=== PATIENT | female | born 1955 | race Caucasian/White ===

== ENCOUNTER 2018-07-18 18:38 | Emergency (ER) | payer BC ==
[2018-07-18 19:50] VITALS: BP 119/74
[2018-07-18] MEDS ORDERED: Ketorolac INJ* 30 MG/ML 1 ML VIAL IM ONE (20:35)
--- NOTE | 2018-07-18 20:42 | UC ---
Hip/Pelvis Pain - HPI Summary HPI Summary: 63 year old female with 3 week history of throbbing, aching pain to left buttock that occasionally radiates down her left leg to her ankle. Worsens with movement, extended standing or sitting. Denies fever, chills, weakness, numbness , tingling in extremity, loss of bowel or bladder control. Has taken ibuprofen and cyclobenzaprine with some relief. Has not taken ibuprofen in a couple days. History of sciatica in past. - History Of Current Complaint Chief Complaint: UCGeneralIllness Stated Complaint: LEFT HIP PAIN Time Seen by Provider: 07/18/18 20:19 Hx Obtained From: Patient Onset/Duration: Gradual Onset, Lasting Weeks Severity Initially: Mild Severity Currently: Moderate Pain Intensity: 5 Location: Radiates To: - left leg Character Of Pain: Aching, Throbbing Aggravating Factor(s): Movement, Other - extended sitting or standing Alleviating Factor(s): OTC Medications Related History: Similar Episode/Dx As - sciatica - Allergies/Home Medications Allergies/Adverse Reactions: Allergies Allergy/AdvReac Type Severity Reaction Status Date / Time Penicillins Allergy Hives Verified 07/18/18 19:30 Sulfa (Sulfonamide Allergy Unknown Verified 07/18/18 19:30 Antibiotics) Reaction Details Home Medications: Home Medications Cyclobenzaprine TAB* [Flexeril 10 MG TAB*] 5 mg TID PRN 07/18/18 [History Confirmed 07/18/18] Diclofenac 1% GEL (NF) [Voltaren 1% GEL (NF)] 1 applic TID PRN 07/18/18 [ History Confirmed 07/18/18] Naltrexone TAB* 9 mg DAILY 07/18/18 [History Confirmed 07/18/18] PMH/Surg Hx/FS Hx/Imm Hx - Additional Past Medical History Additional PMH: Noncontributory Previously Healthy: Yes - Surgical History Surgical History: Yes Surgery Procedure, Year, and Place: tonsillectomy - Family History Family History: Noncontributory - Social History Occupation: Employed Full-time Lives: With Family Alcohol Use: Occasionally Substance Use Type: None Smoking Status (MU): Former Smoker - Immunization History Most Recent Tetanus Shot: UTD Review of Systems Constitutional: Negative Skin: Negative Respiratory: Negative Cardiovascular: Negative Motor: Negative Neurovascular: Negative Musculoskeletal: Other: - See HPI Neurological: Negative Is Patient Immunocompromised?: No All Other Systems Reviewed And Are Negative: Yes Physical Exam Triage Information Reviewed: Yes Appearance: Well-Appearing, No Pain Distress, Well-Nourished Vital Signs: Initial Vital Signs Temp 98.2 F 07/18/18 19:36 Pulse 70 07/18/18 19:36 Resp 16 07/18/18 19:36 BP 119/74 07/18/18 19:36 Pulse Ox 98 07/18/18 19:36 Vital Signs Reviewed: Yes Respiratory: Positive: Lungs clear, Normal breath sounds, No respiratory distress Cardiovascular: Positive: RRR, No Murmur, Pulses Normal, Brisk Capillary Refill Musculoskeletal: Positive: Strength Intact, ROM Intact, Other: - Nontender lumbar spine. Mild tenderness left buttocks. No tenderness left hip. Full painless ROM. Patient reports pain relief with strait leg raise. Neurological: Positive: Alert Skin Exam: Normal Hip Injury Course/Dx - Course Course Of Treatment: 63 year old female with 3 weeks of left buttock pain that radiates down her left leg. Has worsened over past 2-3 days. Denies numbness, tingling, weakness, or loss of bowel or bladder control. Has history of sciatica and has used ibuprofen and cyclobenzaprine occasionally with some relief. Her symptoms and exam are consistent with this diagnosis. She was given an injection of ketoralac in the clinic and encouraged to continue with conservative treat using NSAIDs and cyclobenzaprine. She is to follow up with her PCP in 7 days if no improvement. - Differential Dx/Diagnosis Provider Diagnoses: sciatica left leg Discharge - Sign-Out/Discharge Documenting (check all that apply): Patient Departure All imaging exams completed and their final reports reviewed: No Studies - Discharge Plan Condition: Stable Disposition: HOME Patient Education Materials: Sciatica (ED) Referrals: Krystina De La Rosa MD [Primary Care Provider] - 7 Days (For recheck.) Additional Instructions: You were given a shot of an anti-inflammatory in the clinic tonnori called ketoralac (Toradol) for your pain. You should not take any other anti- inflammatory medications such as ibuprofen (Advil, Motrin), naproxen (Aleve), or aspirin for at least 8 hours after receiving this medication. Starting tomorrow take ibuprofen 600 mg every 8 hours with food for 7 days. You may then take 600 mg every 8 hours as needed for pain. You may continue to use Flexeril (cyclobenzaprine) 1 tab every 8 hours as needed for severe pain or spasm. This may cause drowsiness so do not take and drive or operate machinery. Follow up with you primary care provider in 7 days for recheck. Seek immediate medical attention in the emergency room if you develop fever greater than 100.5 F, have worsening pain despite pain medication, develop weakness, numbness, or tingling in your leg, or lose control of your bowel or bladder. - Billing Disposition and Condition Condition: STABLE Disposition: Home
== END 2018-07-18 20:52 | disposition home or self-care (01) ==
LOC: UCCORT 18:38
DX: M54.32 Sciatica, left side (principal); Z88.0 Allergy status to penicillin; Z88.1 Allergy status to other antibiotic agents; Z87.891 Personal history of nicotine dependence
CPT/HCPCS: 96372; 99211; G0463; J1885

== ENCOUNTER 2018-09-12 07:35 | Emergency (ER) | payer BC ==
[2018-09-12 07:58] VITALS: BP 136/79
--- NOTE | 2018-09-12 08:12 | ED ---
Throat Pain/Nasal Congestion - HPI Summary HPI Summary: 63 yr old female with the complaint of sore throat. Onset of throat pain about 10 days ago, progressive worse, hurts to swallow, has felt like a lump in throat this morning when first woke up but not now. No drooling, no stridor, no change in voice. No fever or chills. - History of Current Complaint Chief Complaint: UCGeneralIllness Time Seen by Provider: 09/12/18 08:01 - Allergies/Home Medications Allergies/Adverse Reactions: Allergies Allergy/AdvReac Type Severity Reaction Status Date / Time Penicillins Allergy Hives Verified 07/18/18 19:30 Sulfa (Sulfonamide Allergy Unknown Verified 07/18/18 19:30 Antibiotics) Reaction Details Home Medications: Home Medications Ibuprofen 200 mg PO ONCE 09/12/18 [History Confirmed 09/12/18] PMH/Surg Hx/FS Hx/Imm Hx Respiratory History: Reports: Hx Asthma Musculoskeletal History: Denies: Hx Rheumatoid Arthritis, Hx Osteoporosis - OSTEOPENIA - Cancer History Hx Radiation Therapy: No - Surgical History Surgery Procedure, Year, and Place: tonsillectomy. LASIX Infectious Disease History: No Infectious Disease History: Denies: Traveled Outside the [place] in Last 30 Days - Family History Known Family History: Positive: None Family History: Noncontributory - Social History Occupation: Works From/At Home Alcohol Use: Occasionally Substance Use Type: Reports: None Smoking Status (MU): Former Smoker Review of Systems Constitutional: Negative Positive: Sore Throat All Other Systems Reviewed And Are Negative: Yes Physical Exam Triage Information Reviewed: Yes Vital Signs On Initial Exam: Initial Vitals Temp Pulse Resp BP Pulse Ox 97.2 F 67 15 136/79 99 09/12/18 07:49 09/12/18 07:49 09/12/18 07:49 09/12/18 07:49 09/12/18 07:49 Vital Signs Reviewed: Yes Appearance: Positive: Well-Appearing, No Pain Distress Skin: Positive: Warm, Skin Color Reflects Adequate Perfusion Head/Face: Positive: Normal Head/Face Inspection Eyes: Positive: EOMI ENT: Positive: Normal ENT inspection, Pharyngeal erythema, TMs normal, Uvula midline. Negative: Trismus, Muffled voice, Hoarse voice Neck: Positive: Nontender Respiratory/Lung Sounds: Positive: Clear to Auscultation, Breath Sounds Present Cardiovascular: Positive: RRR. Negative: Murmur Abdomen Description: Positive: Nontender Musculoskeletal: Positive: Strength/ROM Intact Neurological: Positive: Sensory/Motor Intact, Alert, Oriented to Person Place, Time, CN Intact II-III Diagnostics - Vital Signs Vital Signs Temp Pulse Resp BP Pulse Ox 09/12/18 07:49 97.2 F 67 15 136/79 99 - Laboratory Lab Statement: Any lab studies that have been ordered have been reviewed, and results considered in the medical decision making process. EENT Course/Dx - Course Course Of Treatment: Rapid strep negative. DC home in stable condition. FU with PMD. - Diagnoses Provider Diagnoses: Pharyngitis, Hypertension Discharge - Sign-Out/Discharge Documenting (check all that apply): Patient Departure All imaging exams completed and their final reports reviewed: No Studies - Discharge Plan Condition: Good Disposition: HOME Patient Education Materials: Hypertension (ED), Pharyngitis (ED) Referrals: Krystina De La Rosa MD [Primary Care Provider] - 2 Days - Billing Disposition and Condition Condition: GOOD Disposition: Home
== END 2018-09-12 08:33 | disposition home or self-care (01) ==
LOC: UCCORT 07:35
DX: J02.9 Acute pharyngitis, unspecified (principal); I10 Essential (primary) hypertension; Z88.0 Allergy status to penicillin; Z88.2 Allergy status to sulfonamides
CPT/HCPCS: 87651; 99212; G0463

== ENCOUNTER 2019-02-08 08:26 | Emergency (ER) | payer BC ==
--- OUTSIDE RECORDS SUMMARY | 2019-02-08 08:33 | XMS REPORT | Continuity of Care Document ---
:1955 External Reference #:[id number] Author Name Frankie RubioSANDRITA Address [address] [facility] [place] [address] Care Team Providers Name Role Phone Krystina De La Rosa MD Care Team Information Flight Dynamicist Unavailable Krystina De La Rosa MD Primary Care Physician Unavailable Payers Date Identification Numbers Payment Provider Subscriber Policy Number: [id number] Bhargavus Paolo Costello PayID: [id number] [address] [address] [place] [address] Advance Directives Description No Information Available Problems Date Description Provider Status Onset: 06/09/2013 Closed fracture of lateral malleolus Evens Dent MD Active Onset: 09/29/2015 Overweight Krystina De La Rosa MD Active Onset: 02/23/2016 High enzyme level in serum Krystina De La Rosa MD Active Onset: 02/23/2016 Scleritis Krystina De La Rosa MD Active Onset: 02/23/2016 Chronic nonalcoholic liver disease Krystina De La Rosa MD Active Onset: 02/23/2016 Chest pain Krystina De La Rosa MD Active Onset: 02/23/2016 Gastroesophageal reflux disease Krystina De La Rosa MD Active Onset: 02/23/2016 Simple goiter Krystina De La Rosa MD Active Onset: 02/23/2016 Breast lump Krystina De La Rosa MD Active Onset: 02/23/2016 Vitamin D deficiency Krystina De La Rosa MD Active Onset: 01/08/2017 Neutropenia Krystina De La Rosa MD Active Onset: 03/21/2018 Prediabetes Krystina De La Rosa MD Active Onset: 03/21/2018 Pure hypercholesterolemia Krystina De La Rosa MD Active Onset: 09/23/2018 Dysphagia Krystina De La Rosa MD Active Onset: 09/23/2018 Eruption Krystina De La Rosa MD Active Onset: 09/23/2018 Bilateral tinnitus Krystina De La Rosa MD Active Onset: 09/23/2018 Fibroadenosis of breast Krystina De La Rosa MD Active Family History Date Family Member(s) Observation Comments General Diabetes Father Heart Disease Father due to [place] () - 62 Father due to Congestive Heart () Failure Mother bowel malignancy Mother due to Septicemia () - after surg. 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[employer]'s Independent with all ADL's Hobbies [email or web address] Tobacco Use Start: Unknown End: Former Cigarette Smoker 1/2 PPD X 25 YRS, Unknown QUIT AT AGE 41 Smoking Status Reviewed: 01/22/19 Former Cigarette Smoker 1/2 PPD X 25 YRS, QUIT AT AGE 41 ETOH Use Currently consumes 2-3 dr/week alcohol socially Recreational Drug Use Denies Drug Use Tobacco Use Start: Unknown End: Patient is a former 1 ppd x 30 yrs, quit Unknown smoker at age 49 Allergies, Adverse Reactions, Alerts Date Description Reaction Status Severity Comments 06/09/2013 Penicillin Active 06/09/2013 Sulfa Drugs Active 01/22/2019 Cefuroxime Sodium Dizziness Active Medications Medication Date Status Form Strength Qnty SIG Indications Ordering Provider Mometasone 01/08/20 Active Suspension 50mcg/Act 17gm 2 sprays in Eileen De La Rosa 17 each MD Krystina nostril daily mdd 2 sprays Calcium + D Active Chewtabs 500-1000- 1 po daily Unknown 00 40mg-Unt- mcg Vitamin D3 Active Capsules 1000Unit 3 by mouth Unknown 00 every day Proair HFA Active Aerosol 108(90Bas 8.500 2 puffs Eladia De La Rosa) gm every 4 MD Krystina mcg/Act hours as needed for wheezing, sob, or persistent cough Omeprazole Active Capsules DR 20mg 90cap 1 by mouth Eladia De La Rosa every day MD Krystina Ibuprofen Hx Tablets 200mg prn Unknown - 07/01/20 13 Vitamin D Hx Capsules 1000Unit Unknown High Potency 00 - 09/29/20 15 Probiotic Hx Capsules once daily Unknown 00 - Unknown Garcinia Hx three times Unknown Cambogia 00 - a day Unknown Detox Hx Capsules 1,310mg 2 capsules Unknown 00 - twice a day Unknown Omeprazole Hx Capsules DR 20mg 90cap 1 by mouth Rj 00 - s every day MD Krystina 05/09/20 17 Prednisolone Hx Suspension 1% Instill 1 Unknown Acetate 00 - GTT In Left Unknown Eye Three To Four Times Daily Mometasone Hx Suspension 50mcg/Act 17gm 2 sprays in Rj, Furoate 00 - nose two MD Krystina 01/08/20 times a day 17 Artificial Hx Solution 0.2-0.2-1 1-2 drops Unknown Tears 00 - % twice a day 09/23/20 as needed 18 Immunizations CPT Code Status Date Vaccine Lot # [id number] Given 08/07/2014 Zoster Vaccine Live Injection [id number] Given 09/30/2013 Tdap injection Vital Signs Date Vital Result Comment 01/22/2019 10:50am BP Systolic Sitting Left Arm 126 mmHg BP Diastolic Sitting Left Arm 86 mmHg Body Temperature 98.3 F Heart Rate 80 /min Respiratory Rate 18 /min Height 65 inches 5'5" Weight 178.00 lb BMI (Body Mass Index) 29.6 kg/m2 BSA (Body Surface Area) 1.88 m2 [place] body weight in kilograms 57 kg 09/23/2018 10:28am BP Systolic 122 mmHg BP Diastolic 76 mmHg Body Temperature 98.4 F Heart Rate 74 /min Respiratory Rate 20 /min Height 65 inches 5'5" Weight 174.00 lb BMI (Body Mass Index) 29.0 kg/m2 BSA (Body Surface Area) 1.86 m2 [place] body weight in kilograms 57 kg O2 % BldC Oximetry 95 % 03/21/2018 8:59am BP Systolic 106 mmHg BP Diastolic 70 mmHg Body Temperature 97.9 F Heart Rate 67 /min Respiratory Rate 17 /min Height 65 inches 5'5" Weight 170.00 lb BMI (Body Mass Index) 28.3 kg/m2 BSA (Body Surface Area) 1.85 m2 [place] body weight in kilograms 57 kg 05/09/2017 10:05am BP Systolic 122 mmHg BP Diastolic 80 mmHg Height 65 inches 5'5" Weight 174.00 lb BMI (Body Mass Index) 29.0 kg/m2 BSA (Body Surface Area) 1.86 m2 [place] body weight in kilograms 57 kg 01/08/2017 1:49pm BP Systolic Sitting Left Arm 112 mmHg BP Diastolic Sitting Left Arm 66 mmHg Body Temperature 98.6 F Heart Rate 60 /min Respiratory Rate 18 /min Height 65 inches 5'5" Weight 177.00 lb BMI (Body Mass Index) 29.5 kg/m2 BSA (Body Surface Area) 1.88 m2 [place] body weight in kilograms 57 kg 03/08/2016 9:36am BP Systolic Sitting Left Arm 110 mmHg BP Diastolic Sitting Left Arm 68 mmHg Heart Rate 76 /min Respiratory Rate 16 /min Height 66 inches 5'6" Weight 179.00 lb BMI (Body Mass Index) 28.9 kg/m2 BSA (Body Surface Area) 1.91 m2 02/23/2016 2:07pm BP Systolic 138 mmHg BP Diastolic 84 mmHg Height 66 inches 5'6" Weight 178.00 lb BMI (Body Mass Index) 28.7 kg/m2 BSA (Body Surface Area) 1.90 m2 02/01/2016 9:08am BP Systolic Sitting Left Arm 53960 mmHg Heart Rate 63 /min Respiratory Rate 16 /min Height 66.25 inches 5'6.25" Weight 180.00 lb BMI (Body Mass Index) 28.8 kg/m2 BSA (Body Surface Area) 1.92 m2 09/29/2015 1:00pm BP Systolic 122 mmHg BP Diastolic 77 mmHg Body Temperature 99.1 F Heart Rate 71 /min Respiratory Rate 18 /min Height 66.25 inches 5'6.25" Weight 176.00 lb BMI (Body Mass Index) 28.2 kg/m2 BSA (Body Surface Area) 1.90 m2 06/09/2013 10:35am BP Systolic Sitting Left Arm 138 mmHg BP Diastolic Sitting Left Arm 90 mmHg Results Test Date Facility Test Result H/L Range Note Affirm 01/22/2019 [facility] [address] Trichomonas Negative [Negative] 1 Vaginitis Panel [address] [place] [address] [phone] Gardnerella vaginalis POSITIVE Abnormal [Negative] Rebecca species Negative [Negative] 2 Urine Dipstick 01/22/2019 [facility] Ua Leuko trace Negative Ua Nitrite - Negative Ua Urobilinogen .2 0.2 - 1.0 E.U./dL Ua Protein trace Negative Ua PH 5 Low 6.5-7.5 Ua Blood - Negative Ua Specific Fortescue 1.020 1.010-1.030 Ua Ketones - Negative Ua Bilirubin - Negative Ua Glucose - Negative Laboratory test 09/12/2018 [facility] Rapid Strep Negative Negative 3 finding [phone] Molecular Glucose 03/21/2018 [facility] Glucose 116 mg/dL High 74-[address] [place] [address] [phone] Reflex add FT3? Y Reflex add FT4? Y Magnesium 03/21/2018 [facility] Magnesium 2.3 mg/dL N 1.8-2.[address] [place] [address] [phone] Reflex add FT3? Y Reflex add FT4? Y Laboratory test 03/21/2018 [facility] Vitamin 47.7 30.0-100.[address] D,25-Hydroxy ng/[place] [address] [phone] TSH Reflex FT4 03/21/2018 [facility] Thyroid Stim 1.93 N 0.30-4.20 And/Or FT3 [address] Hormone uIU/[place] [address] [phone] Reflex add FT3? Y Reflex add FT4? Y Glycohemoglobin 03/07/2018 [facility] [address] Glycohemoglobin 6.3 % N 4.2- 6.3 6, [address] (A1c) [place] [address] [phone] eAG 134 mg/dL Differential-WBC Confirm 03/07/2018 [facility] [address] Total Cells 100 # CELLS [address] Counted [place], [place] [id number] [phone] Band% 3 % N 0-8 Neutrophils% 11 % Low 33-73 Lymph% 56 % High 20-42 Atypical Lymph% 8 % High 0-7 Monocyte% 9 % N 0-10 Eosinophil% 13 % High 0-5 Platelet Estimate NORMAL RBC Morphology NORMAL CBS W/Automated 03/07/2018 [facility] [address] White Blood 2.5 K/uL Low 3.1- 10.[address] [place] [address] [phone] Red Blood Count 5.17 M/uL N 3.90-5.40 Hemoglobin 16.1 gm/dL High 11.6-15.8 Hematocrit 45.7 % N 36.0-46.1 Mean Cell Volume 88.4 fl N 80.9-99.0 Mean Corpuscular HGB 31.1 pg N 25.9-32.7 Mean Corpuscular HGB Conc 35.2 g/dL High 30.8-34.3 Platelet Count 196 K/uL N 155-360 Red Cell Distri Width SD 43.9 fl N 3-47 Red Cell Distri Width %CV 13.9 % N 11.7-14.4 Mean Platelet Volume 11.1 fL N 8.9-12.4 Neut% 16.1 % Low 40.4-72.8 Lymph % 53.0 % High 20.0-42.0 Republic % 18.9 % High 4.3-13.2 Eo% 11.6 % High 0.0-6.6 Bas% 0.4 % N 0.0-1.1 Neut# 0.40 K/uL Low 1.8-7.0 Lymph # 1.32 K/uL N 1.0-4.0 Republic # 0.47 K/uL N 0.3-0.9 Eos # 0.29 K/uL N 0.0-0.5 Baso # 0.01 K/uL N 0.0-0.1 Comprehensive Metabolic 03/07/2018 [facility] [address] Glucose 116 mg/dL High 74-106 Panel [address] [place], [place] [id number] [phone] BUN 23 mg/dL High 7-18 Creatinine 0.8 mg/dL N 0.6-1.3 Glom Filtration Rate, Estimate >60 mL/min >60 If >60 mL/min >60 8 BUN/Creat 28.7 ratio Sodium 143 mmol/L N 136-145 Potassium 4.5 mmol/L N 3.5-5.1 Chloride 111 mmol/L High 98-107 Carbon Dioxide 26 mmol/L N 21-32 Anion Gap 6 mEq/L Low 8-16 Calcium 9.5 mg/dL N 8.5-10.1 Total Protein 6.8 g/dL N 6.4-8.2 Albumin 3.8 g/dL N 3.4-5.0 Globulin 3.0 g/dL N 1.9-4.3 Alb/Glob 1.3 ratio Bilirubin,Total 0.5 mg/dL N 0.2-1.0 Sgot/Ast 14 U/L Low 15-37 9 SGPT/Alt 39 U/L N 12-78 Alkaline Phosphatase 58 U/L N 45-117 LDL Cholesterol Profile 03/07/[address] Cholesterol 152 mg/dL <[address] [place] [address] [phone] Triglycerides 74 mg/dL <150 11 HDL Cholesterol 55 mg/dL >40 12 LDL-Cholesterol 82 mg/dL < 100 13 Path Review: 03/07/[address] Path INDICATED,SLIDE 14 4077 [facility] Review: <SEE NOTE> [place] [facility] [phone] Slide Review 03/07/[address] Slide DIFF ORDERED [address] Review [place] [address] [phone] Comprehensive 05/09/2017 [facility] Glucose 117 mg/dL High 74- 15 Metabolic Panel [address] [place] [address] [phone] BUN 12 mg/dL N 7-18 Creatinine 0.9 mg/dL N 0.6-1.3 Glom Filtration Rate, Estimate >60 mL/min >60 If >60 mL/min >60 16 BUN/Creat 13.3 ratio Sodium 142 mmol/L N 136-145 Potassium 3.8 mmol/L N 3.5-5.1 Chloride 108 mmol/L High 98-107 Carbon Dioxide 28 mmol/L N 21-32 Anion Gap 6 mEq/L Low 8-16 Calcium 9.6 mg/dL N 8.5-10.1 Total Protein 6.9 g/dL N 6.4-8.2 Albumin 3.8 g/dL N 3.4-5.0 Globulin 3.1 g/dL N 1.9-4.3 Alb/Glob 1.2 ratio Bilirubin,Total 0.4 mg/dL N 0.2-1.0 Sgot/Ast 18 U/L N 15-37 SGPT/Alt 49 U/L N 12-78 Alkaline Phosphatase 57 U/L N 45-117 Laboratory test finding 05/09/2017 [facility] Amylase 41 U/L N 25-[address] [place], [place] [address] [phone] Lipase 108 U/L N 73-393 HPV High 01/08/2017 [facility] HPV High Risk Results on 17, [address] [place] [address] [phone] CBS 01/08/2017 [facility] White Blood 3.4 K/uL N 3.1-10. W/Automated [address] Count 7 [place] [address] [phone] Red Blood Count 5.43 M/uL High 3.90-5.40 Hemoglobin 16.4 gm/dL High 11.6-15.8 Hematocrit 48.2 % High 36.0-46.1 Mean Cell Volume 88.8 fl N 80.9-99.0 Mean Corpuscular HGB 30.2 pg N 25.9-32.7 Mean Corpuscular HGB Conc 34.0 g/dL N 30.8-34.3 Platelet Count 231 K/uL N 150-400 Red Cell Distri Width SD 44.8 fl N 3-47 Red Cell Distri Width %CV 14.1 % N 11.7-14.4 Mean Platelet Volume 10.9 fL N 8.9-12.4 Neut% 26.2 % Low 40.4-72.8 Lymph % 52.8 % High 20.0-42.0 Republic % 16.9 % High 4.3-13.2 Eo% 3.8 % N 0.0-6.6 Bas% 0.3 % N 0.0-1.1 Neut# 0.90 K/uL Low 1.8-7.0 Lymph # 1.81 K/uL N 1.0-4.0 Republic # 0.58 K/uL N 0.3-0.9 Eos # 0.13 K/uL N 0.0-0.5 Baso # 0.01 K/uL N 0.0-0.1 Slide Review 01/08/2017 [facility] Slide Review . 19 [address] [place] [address] [phone] Laboratory test 10/18/2016 [facility] Thyroid Stim 2.17 N 0.30-4 20 finding [address] Hormone uIU/mL .20 [place] [address] [phone] Comprehensive 10/18/2016 [facility] Glucose 129 mg/dL High 74-106 Metabolic Panel [address] [place] [address] [phone] BUN 26 mg/dL High 7-18 Creatinine 0.9 mg/dL N 0.6-1.3 Glom Filtration Rate, Estimate >60 mL/min N >60 If >60 mL/min N >60 21 BUN/Creat 28.8 ratio N Sodium 141 mmol/L N 136-145 Potassium 4.1 mmol/L N 3.5-5.1 Chloride 108 mmol/L High 98-107 Carbon Dioxide 26 mmol/L N 21-32 Anion Gap 7 mEq/L Low 8-16 Calcium 8.4 mg/dL Low 8.5-10.1 Total Protein 6.4 g/dL N 6.4-8.2 Albumin 3.6 g/dL N 3.4-5.0 Globulin 2.8 g/dL N 1.9-4.3 Alb/Glob 1.3 ratio N Bilirubin,Total 0.6 mg/dL N 0.2-1.0 Sgot/Ast 14 U/L Low 15-37 22 SGPT/Alt 45 U/L N 12-78 Alkaline Phosphatase 53 U/L N 45-117 LDL Cholesterol Profile 10/18/2016 [facility] Cholesterol 141 mg/dL N <200 23 [address] [place] [address] [phone] Triglycerides 45 mg/dL N <150 24 HDL Cholesterol 55 mg/dL N >40 25 LDL-Cholesterol 77 mg/dL N < 100 26 Laboratory test 02/23/2016 [facility] Blood Smear See Note 27 finding [address] Review - [place] [address] [phone] Laboratory test 02/23/2016 [facility] Lipase 97 U/L 73-393 finding [address] [place] [address] [phone] Amylase 38 U/L 25-115 Hepatitis 02/23/2016 [facility] Hepatitis A Nonreactive [address] [place] [place] [address] [phone] Hepatitis B Surface Antigen Nonreactive Nonreactive 29 Hepatitis B Core IgM Nonreactive Nonreactive 30 Hepatitis C Antibody Nonreactive Nonreactive Signal/Cutoff ratio < 0.02 <0.80 31 Liver Function Tests 02/23/2016 [facility] Total Protein 7.1 g/dL 6.4-8.[address] [place] [address] [phone] Albumin 4.2 g/dL 3.4-5.0 Globulin 2.9 g/dL 1.9-4.3 Alb/Glob 1.4 ratio Bilirubin,Total 0.5 mg/dL 0.2-1.0 Bilirubin,Direct 0.1 mg/dL 0.0-0.2 Bilirubin,Indirect 0.4 mg/dL 0.0-0.9 Sgot/Ast 15 U/L 15-37 SGPT/Alt 58 U/L 12-78 Alkaline Phosphatase 64 U/L 45-117 Arthritis 02/23/2016 [facility] Sedimentation 1 mm/hr 0-30 32 Panel([place]) [address] [place] [address] [phone] Rheumatoid Factor Screen < 10.0 IU/mL 0.0-15.0 Uric Acid 4.7 mg/dL 2.6-6.0 Antinuclear Antibodies, Ifa Negative . 33 CBC W/Automated 02/23/2016 [facility] White Blood 2.3 K/uL Low 3.1-10.[address] [place] [address] [phone] Red Blood Count 5.29 M/uL 3.90-5.40 Hemoglobin 15.8 gm/dL 11.6-15.8 Hematocrit 45.7 % 36.0-46.1 Mean Cell Volume 86.4 fl 80.9-99.0 Mean Corpuscular HGB 29.9 pg 25.9-32.7 Mean Corpuscular HGB Conc 34.6 g/dL High 30.8-34.3 Platelet Count 215 K/uL 155-360 Red Cell Distri Width SD 41.9 fl 3-47 Red Cell Distri Width %CV 13.5 % 11.7-14.4 Mean Platelet Volume 10.7 fL 8.9-12.4 Neut% 21.1 % Low 40.4-72.8 Lymph % 55.3 % High 17.0-46.1 Republic % 19.7 % High 4.3-13.2 Eo% 3.5 % 0.0-6.6 Bas% 0.4 % 0.0-1.1 Neut# 0.48 K/uL Low 1.8-7.0 Lymph # 1.26 K/uL Low 1.8-7.0 Republic # 0.45 K/uL 0.3-0.9 Eos # 0.08 K/uL 0.0-0.5 Baso # 0.01 K/uL 0.0-0.1 Laboratory test 02/23/2016 [facility] C-Reactive 2.27 mg/L <3.[address] Protein,Cardiac [place], [place] [address] [phone] Vitamin D,25-Hydroxy 74.7 ng/mL 30.0-100.0 34 Slide Review DIFF ORDERED 35 Path Review: See Note 36 Differential WBC 02/23/2016 [facility] Total Cells 100 #CELLS Confirm [address] Counted [place], [place] [address] [phone] Band% 2 % 0-8 Neutrophils% 15 % Low 33-73 Lymph% 52 % 17-56 Atypical Lymph% 18 % High 0-7 Monocyte% 10 % 0-10 Eosinophil% 3 % 0-5 Platelet Estimate NORMAL RBC Morphology NORMAL Laboratory test finding 01/03/2016 [facility] Lipase 394 U/L High 73-[address] [place], [place] [address] [phone] Troponin-I < 0.015 ng/mL 37 Comprehensive Metabolic 01/03/2016 [facility] Glucose 141 mg/dL High 74-106 Panel [address] [place], [place] [address] [phone] BUN 18 mg/dL 7-18 Creatinine 0.9 mg/dL 0.6-1.3 Glom Filtration Rate, Estimate >60 mL/min >60 If >60 mL/min >60 38 BUN/Creat 20.0 ratio Sodium 144 mmol/L 136-145 Potassium 3.5 mmol/L 3.5-5.1 Chloride 109 mmol/L High 98-107 Carbon Dioxide 25 mmol/L 21-32 Anion Gap 10 mEq/L 8-16 Calcium 8.3 mg/dL Low 8.5-10.1 Total Protein 5.9 g/dL Low 6.4-8.2 Albumin 3.3 g/dL Low 3.4-5.0 Globulin 2.6 g/dL 1.9-4.3 Alb/Glob 1.3 ratio Bilirubin,Total 0.3 mg/dL 0.2-1.0 Sgot/Ast 10 U/L Low 15-37 39 SGPT/Alt 37 U/L 12-78 Alkaline Phosphatase 52 U/L 45-117 Laboratory test finding 01/03/2016 [facility] CK 37 U/L 26-192 [address] [place] [address] [phone] Troponin-I < 0.015 ng/mL 40 CBC W/Automated Diff 01/03/2016 [facility] White Blood 3.4 K/uL 3.1-10.7 [address] [facility] [place] [address] [phone] Red Blood Count 4.76 M/uL 3.90-5.40 Hemoglobin 14.5 gm/dL 11.6-15.8 Hematocrit 41.3 % 36.0-46.1 Mean Cell Volume 86.8 fl 80.9-99.0 Mean Corpuscular HGB 30.5 pg 25.9-32.7 Mean Corpuscular HGB Conc 35.1 g/dL High 30.8-34.3 Platelet Count 219 K/uL 155-360 Red Cell Distri Width SD 42.4 fl 3-47 Red Cell Distri Width %CV 13.7 % 11.7-14.4 Mean Platelet Volume 10.6 fL 8.9-12.4 Neut% 22.7 % Low 40.4-72.8 Lymph % 54.0 % High 17.0-46.1 Republic % 14.0 % High 4.3-13.2 Eo% 7.2 % High 0.0-6.6 Bas% 2.1 % High 0.0-1.1 Neut# 0.76 K/uL Low 1.8-7.0 Lymph # 1.81 K/uL 1.8-7.0 Republic # 0.47 K/uL 0.3-0.9 Eos # 0.24 K/uL 0.0-0.5 Baso # 0.07 K/uL 0.0-0.1 Laboratory test finding 01/03/2016 [facility] Slide Review . 41 [address] [place], [place] [address] [phone] Path Review: See Note 42 Laboratory test finding 01/03/2016 [facility] Lipase 928 U/L High 73-393 43 [address] [place] [address] [phone] D-Dimer, Quantitative 0.26 ug/mL 44 Laboratory test 01/03/2016 [facility] Blood Smear See Note [address] [place] [place] [address] [phone] Laboratory test 01/03/2016 N2N/CCD Import Basophils # 0.07 0.0-0.1 finding (Auto) Basophils (%) (Auto) 2.1 High 0.0-1.1 Eosinophils # (Auto) 0.24 0.0-0.5 Eosinophils (%) (Auto) 7.2 High 0.0-6.6 Lymphocytes # (Auto) 1.81 1.8-7.0 Lymphocytes (%) (Auto) 54.0 High 17.0-46.1 Manual Slide Review (Hematology) . Monocytes # (Auto) 0.47 0.3-0.9 Monocytes (%) (Auto) 14.0 High 4.3-13.2 Neutrophils # (Auto) 0.76 *L 1.8-7.0 Neutrophils (%) (Auto) 22.7 Low 40.4-72.8 Pathologist Review (Hematology) Indicated,Slide Sent RDW Coefficient of Variation 13.7 11.7-14.4 Red Cell Distribution Width 42.4 3-47 Sodium Level 144 136-145 Laboratory test 10/29/2015 N2N/NextPrinciples Import Urine Bilirubin Negative Negative finding Urine Blood Negative Negative Urine Clarity Clear Clear Urine Color Yellow Yellow Urine Glucose (Ua) Negative Negative Urine Ketones Negative Negative Urine Leukocyte Esterase Negative Negative Urine Nitrite Negative Negative Urine Protein Negative Negative Urine Specific [place] 1.025 1.010-1.030 Urine Urobilinogen 0.2 0.2-1.0 Urine pH 5.5 Low 6.5-7.5 Laboratory test 10/29/2015 N2N/CCD Import Anti-Nuclear Antibody Negative . finding Screen C-Peptide ng/ml 3.4 1.1-4.4 Erythrocyte Sedimentation Rate 2 0-30 Estimated Average Glucose (eAG) 131 Follicle Stimulating Hormone 63.9 Free Thyroxine 1.04 0.76-1.46 Free Triiodothyronine 2.74 2.18-3.98 Hemoglobin A1c 6.2 4.2-6.3 Homocysteine 10.1 0.0-15.0 Insulin Level 15.8 2.6-24.9 Luteinizing Hormone 19.3 Magnesium Level 1.9 1.8-2.4 Plasma Histamine Level 0.34 <1.00 Progesterone Level 0.2 . Reverse Triiodothyronine (T3) 14.7 9.2-24.1 Testosterone Level 12 3-41 Thyroid Peroxidase Antibodies 11 0-34 Thyroid Stimulating Hormone (TSH) 1.93 0.36-3.74 Thyrotropin Receptor Antibody 3.06 High 0.00-1.75 Thyroxine (T4) 8.9 4.7-13.5 Total Triiodothyronine 110 71-180 Tryptase 3.1 2.2-13.2 Vitamin B12 Level 262 193-986 Vitamin K1 Level 0.46 0.28-1.78 Whole Blood Zinc 603 440-860 Laboratory test 10/06/2015 N2N/CCD Import Atypical Lymphocytes % 8 High 0 -7 finding Band Neutrophils % 1 0-8 Basophils # (Auto) 0.01 0.0-0.1 Basophils % 1 0-2 Differential Total Cells Counted 100 Eosinophils # (Auto) 0.14 0.0-0.5 Eosinophils % 6 High 0-5 Lymphocytes # (Auto) 1.25 Low 1.8-7.0 Lymphocytes % 48 17-56 Monocytes # (Auto) 0.51 0.3-0.9 Monocytes % 15 High 0-10 Neutrophils # (Auto) 0.50 Low 1.0-7.0 Normal RBC Morphology Normal Pathologist Review (Hematology) Indicated,Slide Sent RDW Coefficient of Variation 13.4 11.7-14.4 Red Cell Distribution Width 42.5 3-47 Sodium Level 139 136-145 Laboratory test 10/06/2015 [facility] Blood Smear See Note 46 finding [address] Review - [place] [address] [phone] Differential-WBC 10/06/2015 [facility] Total Cells 100 #CELLS Confirm [address] Counted [place] [address] [phone] Band% 1 % 0-8 Neutrophils% 21 % Low 33-73 Lymph% 48 % 17-56 Atypical Lymph% 8 % High 0-7 Monocyte% 15 % High 0-10 Eosinophil% 6 % High 0-5 Basophil% 1 % 0-2 Platelet Estimate NORMAL RBC Morphology NORMAL Laboratory test 10/06/2015 [facility] Path Review: See Note 47 finding [address] [place] [address] [phone] LDL Cholesterol 10/06/2015 [facility] Cholesterol 122 mg/dL <200 48 Profile [address] [place] [address] [phone] Triglycerides 56 mg/dL <150 49 HDL Cholesterol 39 mg/dL Low >40 50 LDL-Cholesterol 72 mg/dL < 100 51 Comprehensive Metabolic 10/06/2015 [facility] Glucose 118 mg/dL High 74-106 Panel [address] [place] [id number] [phone] BUN 16 mg/dL 7-18 Creatinine 0.9 mg/dL 0.6-1.3 Glom Filtration Rate, Estimate >60 mL/min >60 If >60 mL/min >60 52 BUN/Creat 17.7 ratio Sodium 139 mmol/L 136-145 Potassium 3.8 mmol/L 3.5-5.1 Chloride 106 mmol/L 98-107 Carbon Dioxide 27 mmol/L 21-32 Anion Gap 6 mEq/L Low 8-16 Calcium 9.2 mg/dL 8.5-10.1 Total Protein 6.5 g/dL 6.4-8.2 Albumin 4.0 g/dL 3.4-5.0 Globulin 2.5 g/dL 1.9-4.3 Alb/Glob 1.6 ratio Bilirubin,Total 0.5 mg/dL 0.2-1.0 Sgot/Ast 20 U/L 15-37 SGPT/Alt 61 U/L 12-78 Alkaline Phosphatase 50 U/L 45-117 CBS W/Automated 10/06/2015 [facility] White Blood 2.4 K/uL Low 3.1-10.7 Diff [address] [place] [id number] [phone] Red Blood Count 5.26 M/uL 3.90-5.40 Hemoglobin 16.3 gm/dL High 11.6-15.8 Hematocrit 46.2 % High 36.0-46.1 Mean Cell Volume 87.8 fl 80.9-99.0 Mean Corpuscular HGB 31.0 pg 25.9-32.7 Mean Corpuscular HGB Conc 35.3 g/dL High 30.8-34.3 Platelet Count 207 K/uL 155-360 Red Cell Distri Width SD 42.5 fl 3-47 Red Cell Distri Width %CV 13.4 % 11.7-14.4 Mean Platelet Volume 11.3 fL 8.9-12.4 Neut# 0.50 K/uL Low 1.0-7.0 Lymph # 1.25 K/uL Low 1.8-7.0 Republic # 0.51 K/uL 0.3-0.9 Eos # 0.14 K/uL 0.0-0.5 Baso # 0.01 K/uL 0.0-0.1 Laboratory test finding 09/29/2015 Off Site [facility] Fit Hemoccult negative 1 R35.0 2 Method: BD Affirm VPIII DNA Probe Assay 3 Plant Sprayer: [id number] 4 R73.03 E55.9 E61.2 E04.0 5 Vitamin D deficiency has been defined by the [place] [employer] and an Endocrine Society practice guideline as a level of serum 25-OH vitamin D less than 20 ng/mL (1,2). The Endocrine Society went on to further define vitamin D insufficiency as a level between 21 and 29 ng/mL (2). 1. IOM ([place] of [employer]). 2010. Dietary reference intakes for calcium and D. [place]: The National Academies Press. 2. Magaly MF, Harlan NC, Poncho-Tay PANDYA, et al. Evaluation, treatment, and prevention of vitamin D deficiency: an Endocrine Society clinical practice guideline. JCEM. 2010; 96(7):1911-30. Performed at: RN - [facility] [address] [id number] Store Detective: Ioana Cabrera MD, Phone: [phone] 6 Z13.0, Z13.1, Z13.220 7 Elevated levels of HbA1c suggest the need for more aggressive treatment of glycemia. The [place] [employer] Association recommends that a primary goal of therapy should be a HbA1c of <7% and that physicians should re-evaluate the treatment regimen in patients with HbA1c values consistently >8%. 8 Note: Persistent reduction for 3 months or more in an eGFR <60 mL/min/1.73 m2 defines CKD. Patients with eGFR values >/=60 mL/min/1.73 m2 may also have CKD if evidence of persistent proteinuria is present. The original MDRD equation for estimated GFR is not valid for patients less than 18 years of age. Additional information may be found at www.kdoqi.org. 9 Values below the stated reference ranges of AST and ALT can be seen in normal populations. Clinical correlation is suggested. 10 Reference Guidelines*: Desirable: ........... < 200 mg/dL Borderline High: ..... 200-239 mg/dL High: ................ >=240 mg/dL * The National Cholesterol Education Program (NCEP) 11 Reference Guidelines*: Normal: ............. < 150 mg/dL Borderline High: .... 150-199 mg/dL High: ............... 200-499 mg/dL Very High: .......... > 500 mg/dL * Source: National Cholesterol Education Program (NCEP) 12 Reference Guidelines*: Low HDL: ..... < 40 mg/dL Normal: ..... 40-60 mg/dL Desirable: ... > 60 mg/dL *The National Cholesterol Education Program(NCEP) 13 Reference Guidelines*: Optimal:........... <100 mg/dL Near Optimal....... 100-129 mg/dL Borderline High.... 130-159 mg/dL High............... 160-189 mg/dL Very High.......... >=190 mg/dL * Source: National Cholesterol Education Program (NCEP) 14 INDICATED,SLIDE SENT Hematology Consultation Final Report Case# [id number] Final diagnosis Peripheral Blood smear: Review of peripheral blood smear shows marked absolute neutropenia. No Pelgeroid neutrophils are present. No blasts or immature granulocytes are seen. If there is no vitamin B12/folic acid deficiency, no viral infection and no medication effect, bone marrow examination is recommended to determine the cause of neutropenia. [facility] 03/11/18 Gross Description Peripheral blood smear Clinical Data Leukopenia Lorin Youngblood MD Reported 03/11/2018 at 7:32PM, Report electronically signed Performed at: [facility] [id number] [place] [address] 15 R19.7 16 Note: Persistent reduction for 3 months or more in an eGFR <60 mL/min/1.73 m2 defines CKD. Patients with eGFR values >/=60 mL/min/1.73 m2 may also have CKD if evidence of persistent proteinuria is present. The original MDRD equation for estimated GFR is not valid for patients less than 18 years of age. Additional information may be found at www.kdoqi.org. 17 Z01.419 18 Hard copy of report to be sent by mail Report may be viewed in Clinical Review, or in PCI under Medical Record Forms 19 Instrument flagged sample for slide review. Less than 10% Bands seen, no other immature WBC's seen. RBC morphology essentially normal. Platelet estimate=NORMAL 20 Z13.220 Z13.1 E04.0 21 Note: Persistent reduction for 3 months or more in an eGFR <60 mL/min/1.73 m2 defines CKD. Patients with eGFR values >/=60 mL/min/1.73 m2 may also have CKD if evidence of persistent proteinuria is present. The original MDRD equation for estimated GFR is not valid for patients less than 18 years of age. Additional information may be found at www.kdoqi.org. 22 Values below the stated reference ranges of AST and ALT can be seen in normal populations. Clinical correlation is suggested. 23 Reference Guidelines*: Desirable: ........... < 200 mg/dL Borderline High: ..... 200-239 mg/dL High: ................ >=240 mg/dL * The National Cholesterol Education Program (NCEP) 24 Reference Guidelines*: Normal: ............. < 150 mg/dL Borderline High: .... 150-199 mg/dL High: ............... 200-499 mg/dL Very High: .......... > 500 mg/dL * Source: National Cholesterol Education Program (NCEP) 25 Reference Guidelines*: Low HDL: ..... < 40 mg/dL Normal: ..... 40-60 mg/dL Desirable: ... > 60 mg/dL *The National Cholesterol Education Program(NCEP) 26 Reference Guidelines*: Optimal:........... <100 mg/dL Near Optimal....... 100-129 mg/dL Borderline High.... 130-159 mg/dL High............... 160-189 mg/dL Very High.......... >=190 mg/dL * Source: National Cholesterol Education Program (NCEP) 27 DIAGNOSIS: "PERIPHERAL SMEAR, REVIEW": - ABSOLUTE NEUTROPENIA. EP/clf 1004 GROSS 1 SLIDE FOR PATH REVIEW REVIEW CODE CODE: I Signed Electronically signed Phil SNYDER MD 1113 28 IgM antibodies to HAV not detected; does not exclude early acute or recovered HAV infection. 29 HBsAg not detected; does not exclude the possibility of exposure to or early acute infections with HBV. 30 IgM anti-HBc not detected. Does not exclude the possibility of exposure to or infection with HBV. 31 Antibodies to HCV not detected; does not exclude early acute HCV infection. [address] [place]OH[place] NEUT# [place] [address]/23/16 by LAB.MPK 33 Negative <1:80 Borderline 1:80 Positive >1:80 Performed at: [facility] [address] [id number] Store Detective: Ioana Cabrera MD, Phone: [phone] 34 Vitamin D deficiency has been defined by the [place] [employer] and an Endocrine Society practice guideline as a level of serum 25-OH vitamin D less than 20 ng/mL (1,2). The Endocrine Society went on to further define vitamin D insufficiency as a level between 21 and 29 ng/mL (2). 1. IOM ([place] of [employer]). 2010. Dietary reference intakes for calcium and D. [place]: The National Academies Press. 2. Magaly MF, Harlan LADD, Jose Eduardo PANDYA, et al. Evaluation, treatment, and prevention of vitamin D deficiency: an Endocrine Society clinical practice guideline. JCEM. 2010; 96(7):1911-30. Performed at: - [facility] [id number] Store Detective: Ioana Cabrera MD, Phone: [phone] [address] JOHNSON CALLED BACK FOR NEUT# AT 7467 02/23/16 by LAB.MPK 36 INDICATED,SLIDE SENT 37 0.0 - 0.045 ng/mL: Normal 0.046 - 0.5 ng/mL: Suggestive 0.6 - 1.5 ng/mL: Consistent 38 Note: Persistent reduction for 3 months or more in an eGFR <60 mL/min/1.73 m2 defines CKD. Patients with eGFR values >/=60 mL/min/1.73 m2 may also have CKD if evidence of persistent proteinuria is present. The original MDRD equation for estimated GFR is not valid for patients less than 18 years of age. Additional information may be found at www.kdoqi.org. 39 Values below the stated reference ranges of AST and ALT can be seen in normal populations. Clinical correlation is suggested. 40 0.0 - 0.045 ng/mL: Normal 0.046 - 0.5 ng/mL: Suggestive 0.6 - 1.5 ng/mL: Consistent 41 Instrument flagged sample for slide review. No immature WBC's noted. RBC morphology essentially normal. Platelet estimate=Normal 42 INDICATED,SLIDE SENT 43 CHECKED + CALLED LIPASE TO [place]REY AT 0310 01/03/16 44 <=0.49 ug/mL - Low likelihood of DIC, DVT or Pulmonary Embolism >0.49 ug/mL - Additional testing should be done to rule out DIC, DVT, or Pulmonary embolism as clinically indicated. ([facility] has established a 97.89% negative predictive value for thrombotic disease when a cutoff value of 0.5 ug/mL is used.) 45 DIAGNOSIS: "PERIPHERAL SMEAR, REVIEW": - ABSOLUTE NEUTROPENIA. EP/clf Latisha FUNMI RECEIVED 1 PREPARED SMEAR FOR PATH REVIEW. [facility] REVIEW CODE CODE: I Signed Electronically signed Phil SNYDER MD 1042 46 DIAGNOSIS: "PERIPHERAL SMEAR, REVIEW": - ABSOLUTE NEUTROPENIA WITH UNREMARKABLE LEUKOCYTE MORPHOLOGY. EP/mauro 1037 PRE OPERATIVE DIAGNOSIS Z13.0; Z13.220; Z00.00 Signed Electronically signed Phil SNYDER MD 1150 47 INDICATED,SLIDE SENT 48 Reference Guidelines*: Desirable: ........... < 200 mg/dL Borderline High: ..... 200-239 mg/dL High: ................ >=240 mg/dL * The National Cholesterol Education Program (NCEP) 49 Reference Guidelines*: Normal: ............. < 150 mg/dL Borderline High: .... 150-199 mg/dL High: ............... 200-499 mg/dL Very High: .......... > 500 mg/dL * Source: National Cholesterol Education Program (NCEP) 50 Reference Guidelines*: Low HDL: ..... < 40 mg/dL Normal: ..... 40-60 mg/dL Desirable: ... > 60 mg/dL *The National Cholesterol Education Program(NCEP) 51 Reference Guidelines*: Optimal:........... <100 mg/dL Near Optimal....... 100-129 mg/dL Borderline High.... 130-159 mg/dL High............... 160-189 mg/dL Very High.......... >=190 mg/dL * Source: National Cholesterol Education Program (NCEP) 52 Note: Persistent reduction for 3 months or more in an eGFR <60 mL/min/1.73 m2 defines CKD. Patients with eGFR values >/=60 mL/min/1.73 m2 may also have CKD if evidence of persistent proteinuria is present. The original MDRD equation for estimated GFR is not valid for patients less than 18 years of age. Additional information may be found at www.kdoqi.org. Procedures Date Code Description Status 03/21/2018 [id number] Mammogram Completed 03/21/2018 [id number] Bone Mineral Density Test Completed 03/01/2016 37086 ECHO Transthoracic Inc Performance Continuous Completed Electrocardio 02/01/2016 10946 EKG-Tracing And Report Completed 11/08/2015 [id number] Mammogram Completed 07/01/2013 58379 Radiology, Ankle Complete Completed 06/17/2013 24800 Radiology, Ankle Complete Completed 06/09/2013 56401 Fracture closed distal fib w/o manipulation Completed 04/21/2010 10758 Asp./Injection major joint Completed 08/31/2009 34769 Stress Test Interpre And Report Only Completed 08/31/2009 21413 Stress Test Physician Super Only Completed Encounters Type Date Location Provider Dx Diagnosis Office Visit 01/22/2019 Family Medicine Ramiro, R35.0 Frequency of 10:45a Bin OCHOA Jenniferleigh, micturition DESIGN CONSULTANT Z71.1 Person w feared hlth complaint in whom no diagnosis is made Office Visit 09/23/2018 10:15a Family Krystina Rodriguez, R13.10 Dysphagia, Bin OCHOA MD unspecified R21 Rash and other nonspecific skin eruption H93.13 Tinnitus, bilateral 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 R73.03 Prediabetes Office Visit 03/21/2018 9:00a Family Krystina Rodriguez, Z00.00 Encntr for Bin OCHOA MD general adult medical exam w/o abnormal findings R73.03 Prediabetes E78.00 Pure hypercholesterolemia, unspecified E55.9 Vitamin D deficiency, unspecified E04.0 Nontoxic diffuse goiter Office Visit 05/09/2017 10:15a Family Jaylene Christiansen, R19.7 Diarrhea, Bin OCHOA PNP-BC, DESIGN CONSULTANT, unspecified Ibclc Office Visit 01/08/2017 1:30p Family Bobby De La Rosa Z01.419 Encntr for agriculture research director Bin Flaherty MD exam (general) (routine) w/o abn findings K21.9 Gastro-esophageal reflux disease without esophagitis D70.9 Neutropenia, unspecified E78.00 Pure hypercholesterolemia, unspecified Office Visit 03/08/2016 9:30a Cardiology Office Micaela Teresa R07.9 Chest pain, A., ANP unspecified K76.0 Fatty (change of) liver, not elsewhere classified Office Visit 02/23/2016 1:45p [facility] Krystina De La Rosa, R74.8 Abnormal levels Bin OCHOA MD of other serum enzymes H15.102 Unspecified episcleritis, left eye K76.0 Fatty (change of) liver, not elsewhere classified R07.9 Chest pain, unspecified K21.9 Gastro-esophageal reflux disease without esophagitis E04.0 Nontoxic diffuse goiter N63 Unspecified lump in breast E55.9 Vitamin D deficiency, unspecified Office Visit 02/01/2016 9:00a Cardiology Office Micaela Teresa R07.9 Chest pain, A., ANP unspecified K76.0 Fatty (change of) liver, not elsewhere classified Office Visit 01/03/2016 Cardiology Valentino Valencia R07.9 Chest pain, 3:08p Office Alverto Juarez, FACC unspecified Office Visit 09/29/2015 [facility] Krystina De La Rosa, Z00.00 Encntr for 1:00p Bin OCHOA MD general adult medical exam w/o abnormal findings E66.3 Overweight Z13.220 Encounter for screening for lipoid disorders Z12.31 Encntr screen mammogram for malignant neoplasm of breast Z13.0 Encntr screen for dis of the bld/bld-form org/immun [facility] Plan of Treatment Future Appointment(s):03/19/2019 6:00 pm - Krystina De La Rosa MD at [facility]04/04/2019 9:00 am - Krystina De La Rosa MD at [facility]
[2019-02-08 08:57] VITALS: BP 139/78
--- NOTE | 2019-02-08 09:20 | UC ---
Eye Complaint HPI - HPI Summary HPI Summary: Pt presents with c/o bilateral eye redness X 3 days. Pt denies purulent discharge, fever, chills and rash. - History of Current Complaint Chief Complaint: UCEye Stated Complaint: BILAT EYE COMP Time Seen by Provider: 02/08/19 09:13 Hx Obtained From: Patient ?: No Onset/Duration: Gradual Onset, Lasting Days, Still Present Timing: Constant Severity Initially: Mild Severity Currently: Mild Pain Intensity: 1 Aggravating Factor(s): Nothing Alleviating Factor(s): Nothing Associated Signs And Symptoms: Positive: Drainage (Clear) - Risk Factors Penetrating Injury Risk Factor: Negative Acute Glaucoma Risk Factors: Negative Optic Artery Occlusion Risk Factors: Negative - Allergies/Home Medications Allergies/Adverse Reactions: Allergies Allergy/AdvReac Type Severity Reaction Status Date / Time Penicillins Allergy Hives Verified 02/08/19 08:57 Sulfa (Sulfonamide AdvReac GI Upset Verified 02/08/19 08:57 Antibiotics) Home Medications: Home Medications Eye Lubricant Combination No.1 [Freshkote] 1 drop BOTH EYES ONCE PRN 02/08/19 [ History Confirmed 02/08/19] L.acidoph,Paracasei, B.lactis [Probiotic] 1 each PO DAILY 02/08/19 [History Confirmed 02/08/19] PMH/Surg Hx/FS Hx/Imm Hx Previously Healthy: Yes - Surgical History Surgical History: Yes Surgery Procedure, Year, and Place: tonsillectomy. LASIX - Family History Known Family History: Positive: Cardiac Disease Family History: Noncontributory - Social History Occupation: Employed Full-time Lives: With Family Alcohol Use: Occasionally Substance Use Type: None Smoking Status (MU): Former Smoker Type: Cigarettes Length of Time of Smoking/Using Tobacco: 20+ yrs Have You Smoked in the Last Year: No When Did the Patient Quit Smoking/Using Tobacco: pt can not recall - Immunization History Most Recent Tetanus Shot: UTD Review of Systems All Other Systems Reviewed And Are Negative: Yes Constitutional: Positive: Negative Skin: Positive: Negative Eyes: Positive: Eye Redness ENT: Positive: Negative Respiratory: Positive: Negative Cardiovascular: Positive: Negative Gastrointestinal: Positive: Negative Genitourinary: Positive: Negative Motor: Positive: Negative Neurovascular: Positive: Negative Musculoskeletal: Positive: Negative Neurological: Positive: Negative Psychological: Positive: Negative Is Patient Immunocompromised?: No Physical Exam Triage Information Reviewed: Yes Appearance: Well-Appearing Vital Signs: Initial Vital Signs Temp 97.9 F 02/08/19 08:51 Pulse 86 02/08/19 08:51 Resp 16 02/08/19 08:51 BP 139/78 02/08/19 08:51 Pulse Ox 98 02/08/19 08:51 Vital Signs Reviewed: Yes Eyes: Positive: Other: - bilateral scleritis ENT Exam: Normal Dental Exam: Normal Neck exam: Normal Respiratory Exam: Normal Cardiovascular Exam: Normal Musculoskeletal Exam: Normal Neurological Exam: Normal Psychological Exam: Normal Skin Exam: Normal Eye Complaint Course/Dx - Differential Dx/Diagnosis Differential Diagnosis/HQI/PQRI: Conjunctivitis Provider Diagnosis: Redness of both eyes Discharge - Sign-Out/Discharge Documenting (check all that apply): Patient Departure All imaging exams completed and their final reports reviewed: No Studies - Discharge Plan Condition: Stable Disposition: HOME Patient Education Materials: Conjunctivitis (ED) Referrals: Giuliano Vo OD [Doctor of Osteopathy] - As Soon As Possible Krystina De La Rosa MD [Primary Care Provider] - If Needed Additional Instructions: Please follow up with your eye care provider, Dr. Vo. His office is located at: Address: [address] [place] [address] Hours: Sunday Closed Sunday Closed Sunday 9AM5PM Sunday 8AM7PM Sunday 8AM7PM 8AM5PM Sunday [id number] Please use eye lubricating drops and try Zaditor antihistamine drops. - Billing Disposition and Condition Condition: STABLE Disposition: Home - Attestation Statements Provider Attestation: I was available for consult. This patient was seen by the JUDIT. The patient was not presented to, seen by, or examined by me. EK
== END 2019-02-08 09:44 | disposition home or self-care (01) ==
LOC: UCCORT 08:26
DX: H57.89 Other specified disorders of eye and adnexa (principal); H15.093 Other scleritis, bilateral; Z88.2 Allergy status to sulfonamides; Z88.0 Allergy status to penicillin; Z87.891 Personal history of nicotine dependence
CPT/HCPCS: 99211; G0463